=== PATIENT | female | born 1995 | race Caucasian/White ===

== ENCOUNTER 2019-04-15 15:49 | Emergency (ER) | payer OTHER | END 2019-04-15 19:15 | disposition home or self-care (01) | LOC: JER 15:49 ==

== ENCOUNTER 2020-07-22 00:12 | Emergency (ER) | payer OTHER ==
[2020-07-22 01:18] VITALS: BMI 27.8
[2020-07-22] MEDS ORDERED: ACETAMINOPHEN 1000 MG/100 ML VIAL (NON FORMULARY) IVPB ONE (02:13)
[2020-07-22] MEDS ORDERED: ACETAMINOPHEN INJECTION 100 ML IVPB ONE (02:17)
[2020-07-22 02:53] VITALS: BP 108/68; PULSE 74; TEMP 98.5
[2020-07-22 03:38] LABS: BASO % 0.3 % (0-2.0); EOS % 0.1 % (0-4.5); HEMATOCRIT 40.1 % (32.4-45.2); HEMOGLOBIN 13.2 GM/dL (10.7-15.3); LYMPH % 12.4 % (8-40); MCH 27.6 pg (25.7-33.7); MCHC 32.9 g/dl (32.0-36.0); MEAN PLT VOLUME 9.4 fl (7.5-11.1); MONO % 3.9 % (3.8-10.2); NEUT % 83.3 % (42.8-82.8); PLATELET COUNT 301 K/MM3 (134-434); RBC 4.77 M/mm3 (3.60-5.2); RDW 13.3 % (11.6-15.6); WHITE BLOOD COUNT 5.6 K/mm3 (4.0-10.0)
[2020-07-22 03:40] LABS: POTASSIUM 4.6 mmol/L (3.5-5.1)
[2020-07-22 03:41] LABS: CALCIUM 9.4 mg/dL (8.5-10.1)
[2020-07-22 03:42] LABS: ALBUMIN 3.7 g/dl (3.4-5.0); BLOOD UREA NITROGEN 14.3 mg/dL (7-18)
[2020-07-22 03:45] LABS: CREATININE 0.8 mg/dL (0.55-1.3)
[2020-07-22 03:47] LABS: BILIRUBIN,TOTAL 0.2 mg/dL (0.2-1); TOT PROT 7.2 g/dl (6.4-8.2)
[2020-07-22 04:03] LABS: LIPASE 80 U/L (73-393)
[2020-07-22 04:04] LABS: EPI CELLS >36 /uL (0-25.1); HYALINE CASTS 2 /uL (0-3.1); PH,URINE 7.5 (5.0-8.0); URINE APPEARANCE CLOUDY; URINE BACTERIA 236 /uL (0-1359); URINE BILIRUBIN NEGATIVE (NEGATIVE); URINE COLOR YELLOW; URINE GLUCOSE (UA) NEGATIVE (NEGATIVE); URINE KETONE NEGATIVE (NEGATIVE); URINE LEUK ESTERASE TRACE (NEGATIVE); URINE NITRITE NEGATIVE (NEGATIVE); URINE PROTEIN NEGATIVE (NEGATIVE); URINE RBC 52 /uL (0-23.9); URINE WBC 6 /uL (0-25.8)
== END 2020-07-22 05:01 | disposition home or self-care (01) ==
LOC: JER 00:12
DX: K83.9 Disease of biliary tract, unspecified (principal)
CPT/HCPCS: 36415; 76705-TC; 76817-TC; 80053; 81003; 83690; 84702; 85025; 99285-25